=== PATIENT | female | born 1990 | race Two or more races ===

== ENCOUNTER → 2023-03-10 | Day surgery (SDC) | payer OTHER ==
[2023-03-06 08:57] VITALS: BMI 22.3
[~2023-03-10] MED LIST: ACETAMINOPHEN 500 MG TABLET (FP) PO PRN; DEXAMETHASONE SOD PHOSPHATE 10 MG/1 ML VIAL IM ONE; DEXAMETHASONE SOD PHOSPHATE 10 MG/1 ML VIAL ONE; IOHEXOL 180 MG/1 ML ML IJ ONE; LIDOCAINE HCL 1% PRESERVATIVE FREE - 30ML VIAL IJ ONE; LIDOCAINE HCL/PF 1% SDV 5ML VIAL ONE
[2023-03-10 16:02] VITALS: BP 109/72; PULSE 76; RESP 16; TEMP 98.6
== END | disposition home or self-care (01) ==
LOC: JASU-SURG 04:49
PROVIDERS: ATTEND Pain Medicine Pain Medicine
PROC: 3E0R3BZ Introduction of Anesthetic Agent into Spinal Canal, Percutaneous Approach (ICD-10-PCS; 2023-03-10)
PROC: 3E0R33Z Introduction of Anti-inflammatory into Spinal Canal, Percutaneous Approach (ICD-10-PCS; principal; 2023-03-10 12:30)
DX: M54.16 Radiculopathy, lumbar region (principal)
CPT/HCPCS: 76000-TC-FY; 81025; J1100

== ENCOUNTER 2023-03-31 04:21 | Day surgery (SDC) | payer OTHER ==
[2023-03-26 12:46] VITALS: BMI 22.3
[~2023-03-31 04:21] MED LIST changes: -ACETAMINOPHEN 500 MG TABLET (FP) PO PRN; -DEXAMETHASONE SOD PHOSPHATE 10 MG/1 ML VIAL IM ONE; -DEXAMETHASONE SOD PHOSPHATE 10 MG/1 ML VIAL ONE; -LIDOCAINE HCL 1% PRESERVATIVE FREE - 30ML VIAL IJ ONE; -LIDOCAINE HCL/PF 1% SDV 5ML VIAL ONE; +TRIAMCINOLONE ACET 40MG/1ML VIAL IJ ONE
[2023-03-31] MEDS ORDERED: LIDOCAINE HCL 1% PRESERVATIVE FREE - 30ML VIAL IJ ONE (11:21)
[2023-03-31] MEDS ORDERED: IOHEXOL 180 MG/1 ML ML IJ ONE (11:23)
[2023-03-31] MEDS ORDERED: TRIAMCINOLONE ACET 40MG/1ML VIAL IJ ONE (11:25)
[2023-03-31 11:49] VITALS: RESP 18
[2023-03-31 12:39] VITALS: BP 101/65; PULSE 67; TEMP 98
[2023-03-31] MEDS ORDERED: ACETAMINOPHEN 500 MG TABLET (FP) PO PRN (16:23)
== END 2023-03-31 12:10 | disposition home or self-care (01) ==
LOC: JASU-SURG 04:21
PROVIDERS: ATTEND Pain Medicine Pain Medicine
PROC: 3E0U3BZ Introduction of Anesthetic Agent into Joints, Percutaneous Approach (ICD-10-PCS; 2023-03-31)
PROC: 3E0U33Z Introduction of Anti-inflammatory into Joints, Percutaneous Approach (ICD-10-PCS; principal; 2023-03-31 11:45)
DX: M53.3 Sacrococcygeal disorders, not elsewhere classified (principal)
CPT/HCPCS: 76000-TC-FY; 81025

== ENCOUNTER 2023-04-24 04:01 | Day surgery (SDC) | payer OTHER ==
[2023-04-22 12:39] VITALS: BMI 22.3
[2023-04-24] MEDS ORDERED: BUPIVACAINE HCL/PF 0.75% 10 ML VIAL ONE (07:37)
[2023-04-24] MEDS ORDERED: LIDOCAINE HCL/PF 1% SDV 5ML VIAL ONE (07:37)
[2023-04-24] MEDS: BUPIVACAINE HCL/PF 0.75% 10 ML VIAL NR ONE ×2 (11:37)
[2023-04-24] MEDS: LIDOCAINE 1% P/F 10 MG/ML VIAL INF ONE ×2 (11:37)
[2023-04-24 12:04] VITALS: BP 109/74; PULSE 81; RESP 20; TEMP 97.2
[2023-04-24] MEDS ORDERED: ACETAMINOPHEN 500 MG TABLET (FP) PO PRN (15:20)
== END 2023-04-24 12:05 | disposition home or self-care (01) ==
LOC: JASU-SURG 04:01
PROVIDERS: ATTEND Pain Medicine Pain Medicine
PROC: 3E0T33Z Introduction of Anti-inflammatory into Peripheral Nerves and Plexi, Percutaneous Approach (ICD-10-PCS; 2023-04-24)
PROC: 3E0T3BZ Introduction of Anesthetic Agent into Peripheral Nerves and Plexi, Percutaneous Approach (ICD-10-PCS; principal; 2023-04-24 12:30)
DX: M47.816 Spondylosis without myelopathy or radiculopathy, lumbar region (principal)
CPT/HCPCS: 76000-TC-FY; 81025

== ENCOUNTER 2023-05-29 04:29 | Day surgery (SDC) | payer OTHER ==
[2023-05-21 11:30] VITALS: BMI 22.3
[2023-05-29] MEDS ORDERED: BUPIVACAINE HCL/PF 0.75% 10 ML VIAL ONE (07:32)
[2023-05-29] MEDS ORDERED: LIDOCAINE HCL/PF 1% SDV 5ML VIAL ONE (07:33)
[2023-05-29] MEDS ORDERED: ACETAMINOPHEN 500 MG TABLET (FP) PO PRN (08:15)
[2023-05-29] MEDS: LIDOCAINE HCL 1% PRESERVATIVE FREE - 30ML VIAL IJ ONE ×3 (11:59→12:00)
[2023-05-29] MEDS: BUPIVACAINE HCL/PF 0.75% 10 ML VIAL CAUD ONE ×2 (11:59)
[2023-05-29] MEDS: BUPIVACAINE HCL/PF 0.75% 10 ML VIAL NR ONE (12:05)
[2023-05-29 12:58] VITALS: BP 102/60; PULSE 70; RESP 20; TEMP 98.2
== END 2023-05-29 12:32 | disposition home or self-care (01) ==
LOC: JASU-SURG 04:29
PROVIDERS: ATTEND Pain Medicine Pain Medicine
PROC: 3E0T33Z Introduction of Anti-inflammatory into Peripheral Nerves and Plexi, Percutaneous Approach (ICD-10-PCS; 2023-05-29)
PROC: 3E0T3BZ Introduction of Anesthetic Agent into Peripheral Nerves and Plexi, Percutaneous Approach (ICD-10-PCS; principal; 2023-05-29 12:15)
DX: M47.816 Spondylosis without myelopathy or radiculopathy, lumbar region (principal)
CPT/HCPCS: 76000-TC-FY; 81025